=== PATIENT | male | born 1965 | race Caucasian/White ===

== ENCOUNTER → 2017-06-28 | Outpatient (CLI) | payer BC ==
--- NOTE | 2017-06-28 09:32 | RAD ---
HISTORY: Back pain radiating to left hip and leg Study: 3 views of the lumbar spine Comparison: None. Findings: Normal alignment without subluxation or listhesis. Multilevel degenerative disc disease worst at L5- S1 where there is posterior fusion. Vertebral body heights are normal. Sacroiliac joints are unremar kable. No evidence for acute fracture can be identified. IMPRESSION: 1. Multilevel degenerative disc disease status post L5-S1 fusion Reported By:
--- NOTE | 2017-06-28 09:33 | RAD ---
HISTORY: 2 weeks of left hip pain Study: Single view of the pelvis. Comparison: None Findings: A single frontal view of the pelvis demonstrates the pelvic ring to be intact. The SI joints are josé miguel ssly unremarkable. Femoral heads are well seated in the acetabula. there shortening of the right f emoral neck which appears to be somewhat impacted on the femoral head. Femoral head is angulated but well seated within the acetabulum. IMPRESSION: 1. No definite source of patient's left hip pain is identified . 2. 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 Reported By:
== END ==
LOC: RAD 08:46
PROVIDERS: ATTEND Internal Medicine
DX: M51.36 Other intervertebral disc degeneration, lumbar region (principal); M25.552 Pain in left hip
CPT/HCPCS: 72100; 72170